=== PATIENT | male | born 1985 | race Caucasian/White ===

== ENCOUNTER 2019-10-18 11:17 | Emergency (ER) | payer OTHER ==
[~2019-10-18] VITALS: Ht 182.9 cm; Wt 77.1 kg
[~2019-10-18 11:17] MED LIST: CLARITIN-D 241 EACH; IMITREX4 MG/0.5 M; MAXALT MLT10 MG
[2019-10-18 12:17] LABS: ABSOLUTE LYMPHOCYTES 0.8 thou/uL (0.8-5.3); ABSOLUTE MONOCYTES 0.3 thou/uL (0.0-1.2); ABSOLUTE NEUTROPHILS 1.1 thou/uL (1.6-8.1); BASOPHILS 0.3 %; EOSINOPHILS 1.8 %; HEMATOCRIT 44.8 % (42.0-52.0); HEMOGLOBIN 15.8 gm/dL (14.0-18.0); LYMPHOCYTES 36.3 %; MCH 30.3 pg (26.0-34.0); MCHC 35.3 g/dL (28.0-37.0); MCV 85.8 fL (80.0-100.0); MONOCYTES 12.3 %; MPV 8.2 fl. (7.2-11.1); NUCLEATED RBCS 0 /100WBC; POLYS 49.3 %; RBC 5.23 mil/uL (4.50-6.00); WBC 2.2 thou/uL (4.0-11.0)
[2019-10-18 12:26] LABS: CALCIUM 8.5 mg/dL (8.5-10.1); CREATININE 1.1 mg/dL (0.6-1.3); POTASSIUM 4.2 mmol/L (3.5-5.1)
[2019-10-18 12:40] LABS: INFLUENZA A ANTIGEN Positive (Negative); INFLUENZA B ANTIGEN Negative (Negative)
[2019-10-18 12:59] LABS: PLATELET ESTIMATE DECREASED
[2019-10-18] MEDS ORDERED: MEDROLDOSEPACK PO (13:11)
[2019-10-18] MEDS ORDERED: TAMIFLU75 MG PO (13:11)
[2019-10-18] MEDS ORDERED: PHENERGAN 25 MG25 MG PO (13:11)
[2019-10-18] MEDS ORDERED: PROAIR HFA8.5 GM INH (13:11)
[2019-10-18 13:44] VITALS: BP 136/67
[2019-10-18 13:53] LABS: PLATELET COUNT* 95 thou/uL (150-400)
== END 2019-10-18 13:45 | disposition home or self-care (01) ==
LOC: M.ERS 11:17
PROVIDERS: Personal Emergency Response Attendant
DX: U07.1 COVID-19 (principal); J10.1 Influenza due to other identified influenza virus with other respiratory manifestations; Z88.6 Allergy status to analgesic agent; Z88.5 Allergy status to narcotic agent; Z98.890 Other specified postprocedural states

== ENCOUNTER 2020-11-23 15:23 | Emergency (ER) | payer OTHER ==
[~2020-11-23] VITALS: Ht 182.9 cm; Wt 81.7 kg
[~2020-11-23 15:23] MED LIST changes: +MEDROLDOSEPACK PO; +PHENERGAN 25 MG25 MG PO; +PROAIR HFA8.5 GM INH; +TAMIFLU75 MG PO
[2020-11-23] MEDS ORDERED: BUSPIRONE HCL15 MG PO (15:41)
[2020-11-23] MEDS ORDERED: PROTONIX 20 MG20 MG PO (15:42)
[2020-11-23] MEDS ORDERED: HYDROCODON-ACE1 EAC7 PO (17:20)
[2020-11-23] MEDS ORDERED: CEPHALEXIN500 MG PO (17:22)
[2020-11-23 17:26] VITALS: BP 144/85
== END 2020-11-23 17:27 | disposition home or self-care (01) ==
LOC: M.ERS 15:23
DX: S61.211A Laceration without foreign body of left index finger without damage to nail, initial encounter (principal); Z98.890 Other specified postprocedural states; Z88.6 Allergy status to analgesic agent; Z88.5 Allergy status to narcotic agent; Z79.899 Other long term (current) drug therapy; W29.8XXA Contact with other powered hand tools and household machinery, initial encounter; Y93.89 Activity, other specified; Y92.89 Other specified places as the place of occurrence of the external cause; Y99.8 Other external cause status